=== PATIENT | male | born 1990 | race Caucasian/White ===

== ENCOUNTER 2021-01-25 12:46 | Emergency (ER) | payer OTHER, SELFPAY ==
--- NOTE | ~2021-01-25 | XR_ITS ---
EXAMINATION: XR shoulder RT min 2V DATE: 01/25/2021 13:09 INDICATION: Right shoulder pain post injury TECHNIQUE: AP internally and externally rotated, AP oblique externally rotatedfracture and transscapu lar Y views of the right shoulder were obtained. COMPARISON: None FINDINGS: There is widening of the acromioclavicular joint space and cephalad subluxation of the lateral head o f the clavicle relative the acromion with the undersurface of the clavicular articular surface slight ly above the level of the cephalad articular surface of the acromion. There is corresponding widening of the coracoclavicular interval which measures approximately 2.0 cm. Findings would be consistent w ith a type III acromioclavicular joint separation. No fracture. Normal glenohumeral alignment and lizeth nt space. Visualized portion of the right lung is clear. IMPRESSION: Type III acromioclavicular joint separation. No fracture. Reviewed, dictated and finalized at location A.
[2021-01-25 12:55] VITALS: BP 119/70; PULSE 82; RESP 16; TEMP 37; O2SAT 100
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
== END 2021-01-25 13:55 | disposition home or self-care (01) ==
PROVIDERS: Emergency Provider Nurse Practitioner Family
DX: S43.101A Unspecified dislocation of right acromioclavicular joint, initial encounter (principal); V86.05XA Driver of 3- or 4- wheeled all-terrain vehicle (ATV) injured in traffic accident, initial encounter; F17.210 Nicotine dependence, cigarettes, uncomplicated
CPT/HCPCS: 73030; 99203; G0463